=== PATIENT | male | born 1985 | race African-American/Black ===

== ENCOUNTER 2019-06-23 16:15 | Day surgery (SDC) | payer OTHER ==
[~2019-06-23] VITALS: Ht 170.2 cm; Wt 89.7 kg
[2019-06-23] MEDS ORDERED: NS 1,000 ML IV ONE (16:45)
[2019-06-23] MEDS ORDERED: ONDANSETRON 4MG/2ML VIAL (J2405 PER 1MG) IV ONE (16:45)
[2019-06-23] MEDS ORDERED: KETOROLAC 30 MG/ML 1ML VIAL (J1885 PER 15MG) IV ONE (16:45)
[2019-06-23 16:58] LABS: BASO % 0.2 % (0.0-1.0); HEMATOCRIT 48.6 % (42.0-52.0); HEMOGLOBIN 16.2 g/dl (13.5-17.5); LYMPH # 0.5 10^3/uL (1.5-5.0); LYMPH % 5.2 % (24.0-44.0); MEAN CORPUSCULAR HEMOGLOBIN 29.3 pg (27.0-33.0); MEAN CORPUSCULAR HGB CONC 33.3 g/dl (32.0-36.5); MONO # 0.4 10^3/uL (0.0-0.8); MONO % 3.7 % (0.0-5.0); NEUTROPHILS # 8.6 10^3/uL (1.5-8.5); NEUTROPHILS % 90.6 % (36.0-66.0); PLATELET COUNT, AUTOMATED 203 10^3/uL (150-450); RED BLOOD COUNT 5.52 10^6/uL (4.30-6.10); WHITE BLOOD COUNT 9.5 10^3/uL (4.0-10.0)
[2019-06-23] MEDS ORDERED: ISOVUE-370 76% 100ML VIAL (Q9967) As Ordered ONE (17:13)
[2019-06-23 17:24] LABS: ALBUMIN 4.1 GM/DL (3.2-5.2); BILIRUBIN,DIRECT 0.1 MG/DL (0.0-0.2); BILIRUBIN,TOTAL 0.5 MG/DL (0.2-1.0); TOTAL PROTEIN 7.3 GM/DL (6.4-8.2)
--- NOTE | 2019-06-23 17:40 | REPVR ---
PROCEDURE INFORMATION: Exam: CT Abdomen And Pelvis With Contrast Exam date and time: 06/23/2019 5:19 PM Age: 33 years old Clinical indication: Abdominal pain; Additional info: Rlq pain radiating to umbilicus, n/v TECHNIQUE: Imaging protocol: Computed tomography of the abdomen and pelvis with intravenous contrast. Radiation optimization: All CT scans at this facility use at least one of these dose optimization techniques: automated exposure control; mA and/or kV adjustment per patient size (includes targeted exams where dose is matched to clinical indication); or iterative reconstruction. Contrast material: ISO 370; Contrast volume: 100 ml; Contrast route: IV; COMPARISON: No relevant prior studies available. FINDINGS: Lungs: Mild bibasilar dependent atelectasis of the lung bases. Liver: Unremarkable. Gallbladder and bile ducts: Unremarkable. No ductal dilation. Pancreas: Unremarkable. No ductal dilation. Spleen: Unremarkable. Adrenals: Unremarkable. Kidneys and ureters: No hydronephrosis or stones. Stomach and bowel: Stomach is unremarkable. No small bowel obstruction. Large bowel is unremarkable. Appendix: The appendix is dilated up to 1.2 cm in diameter. Moderate degree of periappendiceal fat stranding. No evidence of adjacent abscess. Intraperitoneal space: No pneumoperitoneum. No significant fluid collection. Vasculature: Unremarkable. Lymph nodes: No enlarged lymph nodes. Bladder: Unremarkable. Reproductive: Unremarkable as visualized. Bones/joints: No acute osseus lesion or fracture. Soft tissues: Unremarkable. IMPRESSION: Acute appendicitis. Electronically signed by: Jaylen Lopez On 06/23/2019 17:40:16 PM
[2019-06-23] MEDS ORDERED: PIPERACILLIN/TAZOBACTAM SOD 3.375 GM in D5W MINI-BAG PLUS 50 ML IV ONE (17:45)
[2019-06-23] MEDS ORDERED: LR 1,000 ML IV SCH ×2 (18:15→20:30)
[2019-06-23] MEDS ORDERED: ONDANSETRON 4MG/2ML VIAL (J2405 PER 1MG) IV PRN ×2 (18:45→20:30)
[2019-06-23] MEDS ORDERED: ACETAMINOPHEN TAB 650MG DOSE (2X325MG) PO PRN (18:45)
[2019-06-23] MEDS ORDERED: BUPIVACAINE/EPIN 0.25% 30 ML VIAL As Ordered ONE (18:47)
[2019-06-23] MEDS ORDERED: propofoL 200 MG/20 ML VIAL As Ordered ONE (18:52)
[2019-06-23] MEDS ORDERED: dexameTHASONE 4 MG/ML 1ML VIAL (J1100 PER 1MG) As Ordered ONE (18:52)
[2019-06-23] MEDS ORDERED: LIDOCAINE 2% 100MG/5ML SDV (FOR ANES.) As Ordered ONE (18:52)
[2019-06-23] MEDS ORDERED: SUGAMMADEX SODIUM 500 MG/5 ML VIAL (BRIDION) As Ordered ONE (18:52)
[2019-06-23] MEDS ORDERED: MIDAZOLAM INJ 2MG/2ML VIAL (J2250 PER 1MG) As Ordered ONE (18:52)
[2019-06-23] MEDS ORDERED: ONDANSETRON 4MG/2ML VIAL (J2405 PER 1MG) As Ordered ONE (18:52)
[2019-06-23] MEDS ORDERED: fentaNYL 100 MCG/2 ML INJECTION (J3010) As Ordered ONE (18:52)
[2019-06-23] MEDS ORDERED: ROCURONIUM BROMIDE 50 MG/5 ML VIAL As Ordered ONE (18:52)
[2019-06-23] MEDS ORDERED: METOCLOPRAMIDE INJ 10MG/2ML VIAL (J2765 PER 1) As Ordered ONE (18:52)
--- NOTE | 2019-06-23 19:03 | HPE ---
DATE OF ADMISSION: 06/23/2019 CHIEF COMPLAINT: Right lower quadrant pain. HISTORY OF PRESENT ILLNESS: The patient is a 33-year-old male who presented with right lower quadrant pain that started about 3 o'clock this morning. Woke him up from sleep. Pain got progressively worse throughout the day. Localized over toward the right lower quadrant. He did have one episode of nausea after taking some [place] pills. No other episodes. No fevers. No abdominal trauma. PAST MEDICAL HISTORY: Negative. PAST SURGICAL HISTORY: 1. Left ankle surgery. 2. Right shoulder surgery. SOCIAL HISTORY: Denies drug, alcohol, tobacco abuse. FAMILY HISTORY: Noncontributory. REVIEW OF SYSTEMS: Pertinent positives and negatives as stated in the history of present illness (HPI). ALLERGIES: None. HOME MEDICATIONS: None. PHYSICAL EXAMINATION: GENERAL: Alert and oriented times three. No acute stress. VITAL SIGNS: Temperature 98, pulse 72, respirations 16, blood pressure 114/58, pulse oximetry 99% on room air. HEENT: Pupils equally round and react to light and accommodation. HEART: S1, S2, regular rate and rhythm. LUNGS: Clear auscultation bilaterally. ABDOMEN: Soft, tender to palpation in right lower quadrant. Localized guarding. No rigidity. EXTREMITIES: No clubbing, cyanosis, or edema. LABORATORY DATA: White count 9.5, hemoglobin 16.2, platelets 203. Sodium 139, potassium 4, creatinine 1.1. IMAGING STUDIES: CT abdomen and pelvis was obtained. I reviewed these images myself. There is obvious dilation of the appendix up to 1.2 cm in diameter with some periappendiceal fat stranding. No signs of any abscess or perforation at this time. ASSESSMENT AND PLAN: Patient is a 33-year-old male with appendicitis. Recommendation is to proceed with urgent laparoscopic appendectomy. Risks and benefits of the procedure not limited, but including, bleeding, infection, hernia formation, damage to surrounding structures. Informed consent was obtained and procedure was planned. Postoperatively, he will be likely staying overnight and plan for discharge first thing in the morning.
[2019-06-23] MEDS ORDERED: fentaNYL 100 MCG/2 ML INJECTION (J3010) IV PRN (20:30)
[2019-06-23] MEDS ORDERED: MEPERIDINE INJ 25 MG/ML VIAL (J2175) IV PRN (20:30)
[2019-06-23] MEDS ORDERED: METOCLOPRAMIDE INJ 10MG/2ML VIAL (J2765 PER 1) IV PRN (20:30)
[2019-06-23] MEDS ORDERED: oxyCODONE 5MG TAB PO PRN (20:30)
[2019-06-23 21:00] VITALS: BP 133/64
[2019-06-23] MEDS: SENOKOT S TAB PO SCH (21:07)
[2019-06-23] MEDS: NORCO, ANEXSIA 5/325MG TABLET (HYDROcodone/ACETAMINOPHEN) PO PRN (21:08)
[2019-06-23] MEDS: NS 1,000 ML IV SCH (21:08)
[2019-06-23 21:30] VITALS: BP 121/90
[2019-06-23 22:00] VITALS: BP 131/66
[2019-06-23 23:00] VITALS: BP 131/65
[2019-06-23] MEDS: PIPERACILLIN/TAZOBACTAM SOD 3.375 GM in D5W MINI-BAG PLUS 50 ML IV SCH (23:44)
[2019-06-23] MEDS: KETOROLAC 30 MG/ML 1ML VIAL (J1885 PER 15MG) IV PRN (23:45)
[2019-06-24] VITALS: BP 129/62
[2019-06-24 01:00] VITALS: BP 127/63
[2019-06-24 02:00] VITALS: BP 125/60
[2019-06-24] MEDS: NS 1,000 ML IV SCH (05:26)
[2019-06-24] MEDS: NORCO, ANEXSIA 5/325MG TABLET (HYDROcodone/ACETAMINOPHEN) PO PRN (05:26)
[2019-06-24] MEDS: PIPERACILLIN/TAZOBACTAM SOD 3.375 GM in D5W MINI-BAG PLUS 50 ML IV SCH (05:26)
[2019-06-24 06:00] VITALS: BP 124/60
[2019-06-24 06:57] LABS: HEMOGLOBIN 14.7 g/dl (13.5-17.5); MEAN CORPUSCULAR HEMOGLOBIN 30.2 pg (27.0-33.0); MEAN CORPUSCULAR HGB CONC 34.2 g/dl (32.0-36.5); MEAN CORPUSCULAR VOLUME 88.5 fl (80.0-96.0); PLATELET COUNT, AUTOMATED 202 10^3/uL (150-450); RED BLOOD COUNT 4.86 10^6/uL (4.30-6.10); WHITE BLOOD COUNT 7.9 10^3/uL (4.0-10.0)
[2019-06-24 07:22] LABS: BLOOD UREA NITROGEN 14 MG/DL (7-18); CALCIUM LEVEL 8.4 MG/DL (8.5-10.1); CARBON DIOXIDE LEVEL 30 MEQ/L (21-32); CHLORIDE LEVEL 106 MEQ/L (98-107); CREATININE FOR GFR 1.21 MG/DL (0.70-1.30); GLOMERULAR FILTRATION RATE > 60.0 (>60); GLUCOSE, FASTING 115 MG/DL (70-100); POTASSIUM SERUM 4.5 MEQ/L (3.5-5.1); SODIUM LEVEL 140 MEQ/L (136-145)
[2019-06-24] MEDS: SENOKOT S TAB PO SCH (08:32)
[2019-06-24] MEDS: KETOROLAC 30 MG/ML 1ML VIAL (J1885 PER 15MG) IV PRN (08:38)
[2019-06-24] MEDS ORDERED: HYDR-3715 PO (08:43)
--- NOTE | 2019-06-24 08:52 | RO ---
DATE OF PROCEDURE: 06/23/2019 PREOPERATIVE DIAGNOSIS: Acute appendicitis. POSTOPERATIVE DIAGNOSIS: Acute appendicitis. PROCEDURE: Laparoscopic appendectomy. SURGEON: Sohan Gil DO ASSIST: None. ANESTHESIA: General. ESTIMATED BLOOD LOSS: 5. COMPLICATIONS: None. INDICATION FOR PROCEDURE: The patient is a 33-year-old male who presents with right lower quadrant pain and found to have acute appendicitis. Recommendation was to proceed laparoscopic appendectomy. Risks and benefits of the procedure not limited but including bleeding, infection, hernia formation, damage to surrounding structures, need for further surgery were discussed in detail with the patient. Informed consent was obtained, and procedure was planned. DESCRIPTION OF PROCEDURE: The patient brought back to operating room #3. After sufficient sedation, the abdomen was sterilely prepped and draped. Next, time-out was done to confirm proper patient and proper procedure. Following that, a 5 mm incision was made left lower quadrant, Veress needle inserted, and was insufflated to 15 mmHg. Veress needle was then removed. A 5 mm Optiview port was used to gain access to the abdomen. Once the abdomen was entered, another 8 mm port was placed supraumbilically in the midline and another 5 mm suprapubically in the midline. The right lower quadrant was then examined. The appendix was retrocecal and retroperitoneal. It was very difficult to dissect it free. However, once it was dissected free from the peritoneum, the mesoappendix was taken down to the base using the Enseal. Once the base was reached, it was ligated with two polydioxanone suture (PDS) Endoloops and the amputated with the Enseal. It was then placed inside of a 5 mm EndoCatch bag and brought out through the abdomen at the umbilical port site. Once that was completed, the abdomen was desufflated. Skin incisions were closed 4-0 Vicryl subcuticular sutures. The abdomen was cleaned and dried. Steri-Strips, 4 x 4, and tape were applied, thus ending the procedure.
--- NOTE | 2019-06-24 09:46 | DSES ---
DATE OF ADMISSION: 06/23/2019 DATE OF DISCHARGE: ADMISSION DIAGNOSIS: Acute appendicitis. DISCHARGE DIAGNOSIS: Acute appendicitis. HOSPITAL COURSE: The patient is a 33-year-old male, who presents with acute appendicitis. He was brought to the operating room last evening for a laparoscopic appendectomy. Postoperatively, he was kept overnight and today he is doing great. Labs are normal. No fevers or chills, tolerating diet and ambulating without any difficulty. All of his pain is controlled with oral pain meds. Plan is to discharge home first thing this morning, send him with [address] [place]. He can also use Motrin along with that. No antibiotics are necessary. He can shower starting tomorrow. No baths for 5 days. No lifting more than 20 pounds for 2 weeks. All of his questions are answered, and he will followup with me in 2 weeks for post-op appointment.
== END 2019-06-24 10:15 | disposition home or self-care (01) ==
LOC: M ED 16:15 → M SDC 18:32 → M MS5PR 20:55 → M SDC 06-24 10:15
PROVIDERS: ATTEND Surgery
DX: K35.890 Other acute appendicitis without perforation or gangrene (principal)
CPT/HCPCS: 36415; 44970; 74177; 80047; 80048; 80076; 83605; 83690; 85025; 85027; 88304; 96361; 96365; 96366; 96375; 99284; J1100; J1885; J2250; J2405; J2543; J2765; J3010; Q9967

== ENCOUNTER 2019-11-08 12:43 | Emergency (ER) | payer OTHER ==
[~2019-11-08] VITALS: Ht 170.2 cm; Wt 89.9 kg
[~2019-11-08 12:43] MED LIST: HYDR-3715 PO
[2019-11-08] MEDS ORDERED: ZOLO50TA PO (12:52)
[2019-11-08] MEDS ORDERED: AMBI10TA PO (12:52)
[2019-11-08] MEDS ORDERED: KETOROLAC 30 MG/ML 1ML VIAL IM ONE (15:00)
[2019-11-08] MEDS ORDERED: KETO10TAB PO (15:02)
[2019-11-08 15:32] VITALS: BP 130/78
--- NOTE | 2019-11-21 18:51 | ECGEPIP ---
[facility] - ED Test Date: 2019-11-08 Pat Name: VIELKA CHANCE Department: Room: - Gender: Male Strategic Account Director: : 1985 Requested By: GISELLE Hernandez Order Number: [id number] Reading MD: Mali Bernardo Measurements Intervals [place] Rate: 80 P: 53 WA: 165 QRS: 5 QRSD: 87 T: 32 QT: 363 QTc: 421 Interpretive Statements SINUS RHYTHM NORMAL ECG SEE SCANNED DOWNTIME REPORT
--- NOTE | 2019-11-22 13:33 | REP ---
PORTABLE CHEST X-RAY CLINICAL: Chest pain. FINDINGS: Mediastinum and cardiac silhouette normal. Lung roy clear without focal consolidation, effusion, or pneumothorax. Skeletal structures are intact. IMPRESSION: Normal portable chest x-ray. No acute consolidation. MTDD
== END 2019-11-08 15:34 | disposition home or self-care (01) ==
LOC: M ED 12:43
DX: R07.89 Other chest pain (principal); G47.30 Sleep apnea, unspecified; Z79.899 Other long term (current) drug therapy
CPT/HCPCS: 36415; 71045; 84484; 93005; 96372; 99284; J1885

== ENCOUNTER → 2019-11-13 | Outpatient (CLI) | payer OTHER ==
[~2019-11-13] MED LIST changes: +AMBI10TA PO; +KETO10TAB PO; +ZOLO50TA PO
--- NOTE | 2019-11-19 09:44 | SLEEPCENT ---
DATE: 11/13/2019 ORDERED BY: Rosa Ambriz Nocturnal polysomnography was performed for the titration of pressure therapy in this patient with obstructive sleep apnea syndrome. For testing, patient a [employer] full-face mask of small size was used. There was 4 cm of water pressure applied to the circuit, and the lights were extinguished. There was 6 hours and 59 minutes of data reviewed. There was 271 minutes of sleep identified. Sleep latency was short at 5.5 minutes. REM latency was mildly prolonged at 119 minutes. Sleep architecture was fair with two REM cycles. A period of wake between 2 and 3 a. m. resulted in a reduced sleep efficiency of 66.9%. The patient's electrocardiogram showed a sinus rhythm with an average heart rate of 56 beats per minute. EEG showed normal waveforms for wake and sleep. Respiratory events were reasonably palliated with CPAP at a pressure of +5. There was some minor limb activity, and remaining measures of sleep physiology were normal. IMPRESSION: Obstructive sleep apnea syndrome (G47.33). RECOMMENDATION: Nightly use of pressure therapy 5 cm of water. MTDD
== END ==
LOC: M SLEEP 20:00
PROVIDERS: ATTEND Nurse Practitioner Family
DX: G47.33 Obstructive sleep apnea (adult) (pediatric) (principal)

== ENCOUNTER 2020-02-09 07:03 | Day surgery (SDC) | payer OTHER ==
[~2020-02-09] VITALS: Ht 170.2 cm; Wt 89.8 kg
[~2020-02-09 07:03] MED LIST changes: +NS 1,000 ML IV ONE
[2020-02-09] MEDS ORDERED: fentaNYL 100 MCG/2 ML INJECTION (J3010) As Ordered ONE (08:12)
--- NOTE | 2020-02-09 08:28 | ROOR ---
Patient Name: Félix Roman Procedure Date: 02/09/2020 8:12 AM Date of : 1985 Age: 34 Room: [facility] Gender: Male Note Status: Finalized Procedure: Upper Endoscopy + Biopsies Indications: Epigastric abdominal pain Providers: Abel Mathew MD Referring MD: APOLONIA CERVANTES MD Requesting Provider: Medicines: Monitored Anesthesia Care Complications: No immediate complications. Procedure: Pre-Anesthesia Assessment: - The heart rate, respiratory rate, oxygen saturations, blood pressure, adequacy of pulmonary ventilation, and response to care were monitored throughout the procedure. The Endoscope was introduced through the mouth, and advanced to the second part of duodenum. The upper GI endoscopy was accomplished without difficulty. The patient tolerated the procedure well. Findings: The Z-line was irregular and was found 40 cm from the incisors. Multiple biopsies were obtained with cold forceps for evaluation to rule out Hansen's Esophagus randomly at the gastroesophageal junction. A small hiatal hernia was present. No other significant abnormalities were identified in a careful examination of the stomach. Biopsies were taken with a cold forceps in the gastric antrum for Helicobacter pylori testing. The exam of the duodenum was otherwise normal. Impression: - Z-line irregular, 40 cm from the incisors. - Small hiatal hernia. - Multiple biopsies were obtained at the gastroesophageal junction. - Biopsies were taken with a cold forceps for Helicobacter pylori testing. - The examination was otherwise normal. Recommendation: - Patient has a contact number available for emergencies. The signs and symptoms of potential delayed complications were discussed with the patient. Return to normal activities tomorrow. Written discharge instructions were provided to the patient. - High fiber diet. - Discharge patient to home. - Continue present medications. - Await pathology results. - Telephone GI clinic for pathology results in 1 week. - Return to referring physician. - The findings and recommendations were discussed with the patient. Procedure Code(s): --- Professional --- 14142, Esophagogastroduodenoscopy, flexible, transoral; with biopsy, single or multiple Diagnosis Code(s): --- Professional --- K22.8, Other specified diseases of esophagus K44.9, Diaphragmatic hernia without obstruction or gangrene R10.13, Epigastric pain CPT copyright 2019 [employer]. All rights reserved. The codes documented in this report are preliminary and upon patroller review may be revised to meet current compliance requirements. Abel Mathew MD Abel Mathew MD 02/09/2020 8:27:47 AM Electronically signed by Abel Mathew MD Number of Addenda: 0 Note Initiated On: 02/09/2020 8:12 AM Estimated Blood Loss: Estimated blood loss: none.
--- NOTE | 2020-02-09 08:46 | ROOR ---
Patient Name: Félix Roman Procedure Date: 02/09/2020 8:12 AM Date of : 1985 Age: 34 Room: [facility] Gender: Male Note Status: Finalized Procedure: Total Colonoscopy to cecum + Bx. Indications: Rectal bleeding, Constipation Providers: Abel Mathew MD Referring MD: APOLONIA CERVANTES MD Requesting Provider: Medicines: Monitored Anesthesia Care Complications: No immediate complications. Procedure: Pre-Anesthesia Assessment: - The heart rate, respiratory rate, oxygen saturations, blood pressure, adequacy of pulmonary ventilation, and response to care were monitored throughout the procedure. The Colonoscope was introduced through the anus and advanced to the cecum, identified by appendiceal orifice and ileocecal valve. The colonoscopy was performed without difficulty. The patient tolerated the procedure well. The quality of the bowel preparation was excellent. Findings: The perianal and digital rectal examinations were normal. Non-bleeding internal hemorrhoids were found during retroflexion. The hemorrhoids were small and Grade I (internal hemorrhoids that do not prolapse). A localized area of mildly erythematous mucosa was found in the rectum. Biopsies were taken with a cold forceps for histology. The exam was otherwise without abnormality on direct and retroflexion views. Impression: - Non-bleeding internal hemorrhoids. - Erythematous mucosa in the rectum. Biopsied. - The examination was otherwise normal on direct and retroflexion views. - The exam was otherwise normal to the cecum. Recommendation: - Patient has a contact number available for emergencies. The signs and symptoms of potential delayed complications were discussed with the patient. Return to normal activities tomorrow. Written discharge instructions were provided to the patient. - High fiber diet. - Discharge patient to home. - Continue present medications. - Await pathology results. - Telephone GI clinic for pathology results in 1 week. - Repeat colonoscopy at age 48 for screening purposes. - Return to referring physician. - The findings and recommendations were discussed with the patient. Procedure Code(s): --- Professional --- 34484, Colonoscopy, flexible; with biopsy, single or multiple Diagnosis Code(s): --- Professional --- K64.0, First degree hemorrhoids K62.89, Other specified diseases of anus and rectum K62.5, Hemorrhage of anus and rectum K59.00, Constipation, unspecified CPT copyright 2019 [employer]. All rights reserved. The codes documented in this report are preliminary and upon icd 9 coder review may be revised to meet current compliance requirements. Abel Mathew MD Abel Mathew MD 02/09/2020 8:46:21 AM Electronically signed by Abel Mathew MD Number of Addenda: 0 Note Initiated On: 02/09/2020 8:12 AM Estimated Blood Loss: Estimated blood loss: none.
[2020-02-09] MEDS ORDERED: LIDOCAINE 2% 100MG/5ML SDV (FOR ANES.) As Ordered ONE (08:49)
[2020-02-09] MEDS ORDERED: propofoL 200 MG/20 ML VIAL As Ordered ONE (08:49)
[2020-02-09 09:10] VITALS: BP 139/94
== END 2020-02-09 09:28 | disposition home or self-care (01) ==
LOC: M OPP 07:03
PROVIDERS: ATTEND Internal Medicine Gastroenterology
DX: K62.89 Other specified diseases of anus and rectum (principal); K62.5 Hemorrhage of anus and rectum; K64.0 First degree hemorrhoids; K59.00 Constipation, unspecified; K22.8 Other specified diseases of esophagus; K44.9 Diaphragmatic hernia without obstruction or gangrene; R10.13 Epigastric pain; Z79.899 Other long term (current) drug therapy
CPT/HCPCS: 43239; 45380; 88305; J3010

== ENCOUNTER → 2020-11-08 | Outpatient (REF) | payer OTHER ==
[~2020-11-08] MED LIST changes: -NS 1,000 ML IV ONE
[2020-11-08 17:07] LABS: BASO # 0.1 10^3/uL (0.0-0.2); BASO % 1.7 % (0.0-1.0); EOS % 0.3 % (0.0-3.0); HEMATOCRIT 50.2 % (42.0-52.0); HEMOGLOBIN 16.9 g/dl (13.5-17.5); LYMPH # 1.3 10^3/uL (1.5-5.0); LYMPH % 44.3 % (24.0-44.0); MEAN CORPUSCULAR HEMOGLOBIN 29.4 pg (27.0-33.0); MEAN CORPUSCULAR HGB CONC 33.7 g/dl (32.0-36.5); MEAN CORPUSCULAR VOLUME 87.5 fl (80.0-96.0); MONO # 0.3 10^3/uL (0.0-0.8); MONO % 8.8 % (2.0-8.0); NEUTROPHILS # 1.3 10^3/uL (1.5-8.5); NEUTROPHILS % 44.6 % (36.0-66.0); PLATELET COUNT, AUTOMATED 223 10^3/uL (150-450); RED BLOOD COUNT 5.74 10^6/uL (4.30-6.10)
[2020-11-08 17:13] LABS: ALBUMIN 4.2 GM/DL (3.2-5.2); ALT/SGPT 55 U/L (12-78); BILIRUBIN,TOTAL 0.5 MG/DL (0.2-1.0); BLOOD UREA NITROGEN 14 MG/DL (7-18); CALCIUM LEVEL 9.4 MG/DL (8.5-10.1); CARBON DIOXIDE LEVEL 31 MEQ/L (21-32); CHLORIDE LEVEL 106 MEQ/L (98-107); CPK CREATINE PHOSPHOKINASE 171 U/L (39-308); CREATININE FOR GFR 1.26 MG/DL (0.70-1.30); GLOMERULAR FILTRATION RATE > 60.0 (>60); GLUCOSE, FASTING 80 MG/DL (70-100); LDH LACTATE DEHYDROGENASE 194 U/L (87-241); POTASSIUM SERUM 4.2 MEQ/L (3.5-5.1); SODIUM LEVEL 141 MEQ/L (136-145); TOTAL PROTEIN 7.6 GM/DL (6.4-8.2)
[2020-11-08 19:36] LABS: ERYTHROCYTE SEDIMENTATION RATE 1 mm/hr (0-15)
== END ==
LOC: M SFHCRHEU 11:48
PROVIDERS: ATTEND Internal Medicine Rheumatology
DX: I73.00 Raynaud's syndrome without gangrene (principal)
CPT/HCPCS: 36415; 80053; 82085; 82550; 83615; 85025; 85652; 86140; G0463

== ENCOUNTER → 2021-02-21 | Outpatient (CLI) | payer OTHER | LOC: M PLAIMG 15:18 | PROVIDERS: ATTEND Otolaryngology | DX: R42 Dizziness and giddiness (principal) ==

== ENCOUNTER → 2021-02-22 | Outpatient (CLI) | payer OTHER ==
[~2021-02-22] MED LIST changes: +AMLO1TAB24 PO; +CLON0.1D3 TOP; +DRYS20SO TOP; +FLON27.5 NARES; +GABA-282 PO; +HYOS0.1258 PO; +IMIT5SPR; +META0.52 PO; +MIRA3350 PO; +MM S100C PO; +NOXI1TAB PO; +OMEP40CA4 PO; +PRAZ1CAP PO; +VIAG100T PO; +ZOLO100T PO; +ZONI100C17 PO
[2021-02-22 16:47] LABS: BLOOD UREA NITROGEN 14 MG/DL (7-18); CREATININE FOR GFR 1.11 MG/DL (0.70-1.30); GLOMERULAR FILTRATION RATE > 60.0 (>60)
== END ==
LOC: M LAB 15:16
PROVIDERS: ATTEND Otolaryngology
DX: Z01.812 Encounter for preprocedural laboratory examination (principal)
CPT/HCPCS: 36415; 82565; 84520; G0463

== ENCOUNTER 2021-03-30 12:22 | Day surgery (SDC) | payer OTHER ==
[~2021-03-30] VITALS: Ht 170.2 cm; Wt 92.6 kg
[~2021-03-30 12:22] MED LIST changes: +CLONI1TA PO; +LIDOCAINE 1% MDV 20ML VIAL SQ PRN; +LR 1,000 ML IV ONE
[2021-03-30] MEDS ORDERED: ONDANSETRON 4MG/2ML VIAL As Ordered ONE (17:50)
[2021-03-30] MEDS ORDERED: ROCURONIUM BROMIDE 50 MG/5 ML VIAL As Ordered ONE (17:50)
[2021-03-30] MEDS ORDERED: KETOROLAC 60MG 2ML VIAL As Ordered ONE (17:50)
[2021-03-30] MEDS ORDERED: LIDOCAINE 2% 100MG/5ML SDV (FOR ANES.) As Ordered ONE (17:50)
[2021-03-30] MEDS ORDERED: dexameTHASONE 4 MG/ML 1ML VIAL (J1100 PER 1MG) As Ordered ONE (17:50)
[2021-03-30] MEDS ORDERED: SUGAMMADEX SODIUM 500 MG/5 ML VIAL (BRIDION) As Ordered ONE (17:50)
[2021-03-30] MEDS ORDERED: propofoL 200 MG/20 ML VIAL As Ordered ONE (17:50)
[2021-03-30] MEDS ORDERED: ACETAMINOPHEN 1000MG 100ML IV BTL (OFIRMEV) (J0131 PER 10MG) As Ordered ONE (17:50)
[2021-03-30] MEDS ORDERED: MIDAZOLAM INJ 2MG/2ML VIAL (J2250 PER 1MG) As Ordered ONE (17:51)
[2021-03-30] MEDS ORDERED: fentaNYL 100 MCG/2 ML INJECTION (J3010) As Ordered ONE ×2 (17:51→20:50)
[2021-03-30] MEDS ORDERED: TRANEXAMIC ACID 100 MG/ML 10ML VIAL As Ordered ONE (18:09)
[2021-03-30] MEDS ORDERED: VANCOMYCIN 500MG/10ML VIAL As Ordered ONE (18:09)
[2021-03-30] MEDS ORDERED: ceFAZolin 2 GM/D5W 50 ML IV BAG (J0690 PER 500MG) As Ordered ONE (19:03)
[2021-03-30] MEDS ORDERED: LR 1,000 ML IV SCH (21:00)
[2021-03-30] MEDS ORDERED: ONDANSETRON 4MG/2ML VIAL IV PRN (21:00)
[2021-03-30] MEDS ORDERED: HYDROMORPHONE HCL 0.5 MG/ 0.5 ML SYRINGE (J1170 PER 1) IV PRN (21:00)
[2021-03-30] MEDS: fentaNYL 100 MCG/2 ML INJECTION (J3010) IV PRN ×4 (21:07→21:36)
[2021-03-30] MEDS: oxyCODONE 5MG TAB PO PRN ×2 (21:07→21:36)
[2021-03-30 22:40] VITALS: BP 142/84
== END 2021-03-30 22:45 | disposition home or self-care (01) ==
LOC: M SDC 12:22
PROVIDERS: ATTEND Orthopaedic Surgery
DX: T81.31XA Disruption of external operation (surgical) wound, not elsewhere classified, initial encounter (principal); Y79.3 Surgical instruments, materials and orthopedic devices (including sutures) associated with adverse incidents; T79.7XXA Traumatic subcutaneous emphysema, initial encounter; T79.A21A Traumatic compartment syndrome of right lower extremity, initial encounter; T88.53XD Unintended awareness under general anesthesia during procedure, subsequent encounter; I10 Essential (primary) hypertension; K58.9 Irritable bowel syndrome, unspecified; K21.9 Gastro-esophageal reflux disease without esophagitis; M19.90 Unspecified osteoarthritis, unspecified site; F41.9 Anxiety disorder, unspecified; F32.9 Major depressive disorder, single episode, unspecified; G43.909 Migraine, unspecified, not intractable, without status migrainosus; F43.10 Post-traumatic stress disorder, unspecified; G47.30 Sleep apnea, unspecified; Z99.89 Dependence on other enabling machines and devices
CPT/HCPCS: 11042; 15130; 97607; J0131; J0690; J1100; J1885; J2250; J2405; J3010; Q4104

== ENCOUNTER → 2021-04-12 | Outpatient (CLI) | payer OTHER ==
[~2021-04-12] MED LIST changes: -LIDOCAINE 1% MDV 20ML VIAL SQ PRN; -LR 1,000 ML IV ONE
== END ==
LOC: M PLAIMG 15:30
PROVIDERS: ATTEND Internal Medicine Rheumatology
DX: I73.00 Raynaud's syndrome without gangrene (principal); M79.89 Other specified soft tissue disorders; M25.50 Pain in unspecified joint

== ENCOUNTER → 2021-08-09 | Outpatient (CLI) | payer OTHER ==
[~2021-08-09] MED LIST changes: +FLUV100T25 PO; +LIDOCAINE 1% MDV 20ML VIAL As Ordered ONE; +TOPA50TA8 PO; -ZONI100C17 PO; +ZONI100C67 PO
[2021-08-09 09:30] VITALS: BP 130/89
[2021-08-09 09:57] LABS: BASO % 0.3 % (0.0-1.0); EOS # 0.2 10^3/uL (0.0-0.5); HEMATOCRIT 49.2 % (42.0-52.0); HEMOGLOBIN 16.8 g/dl (13.5-17.5); LYMPH # 0.9 10^3/uL (1.5-5.0); LYMPH % 16.2 % (24.0-44.0); MEAN CORPUSCULAR HEMOGLOBIN 30.3 pg (27.0-33.0); MEAN CORPUSCULAR HGB CONC 34.1 g/dl (32.0-36.5); MEAN CORPUSCULAR VOLUME 88.6 fl (80.0-96.0); MONO # 0.4 10^3/uL (0.0-0.8); MONO % 6.8 % (2.0-8.0); NEUTROPHILS # 4.2 10^3/uL (1.5-8.5); NEUTROPHILS % 73.2 % (36.0-66.0); PLATELET COUNT, AUTOMATED 228 10^3/uL (150-450); RED BLOOD COUNT 5.55 10^6/uL (4.30-6.10); WHITE BLOOD COUNT 5.8 10^3/uL (4.0-10.0)
== END ==
LOC: M IRPRO 08:31
PROVIDERS: ATTEND Internal Medicine Hematology & Oncology
DX: D70.9 Neutropenia, unspecified (principal)